=== PATIENT | female | born 1940 | race Two or more races ===

== ENCOUNTER 2024-10-31 15:26 | Emergency (ER) | payer OTHER ==
[~2024-10-31] VITALS: Ht 152.4 cm; Wt 76.2 kg
--- NOTE | 2024-10-31 16:30 | ED.PDOC ---
Rip. trauma (HPI) HPI Comments 83 year old female accompanied by daughter presents to the ED with chief complaint of headache s/p fall. Patient's daughter reports that she had went to the garage to open the door when she accidentally lost her footing and fell backwards. Patient relays that she hit the back of her head along with injuring her right hand, right ankle, and lower back. During triage, patient's BP was noted to be 208/85, despite patient taking her blood pressure medication daily. Patient denies any LOC, dizziness, numbness, dizziness, chest pain, neck pain, or weakness. Chief Complaint: Fall Injury Time Seen by MD: 16:24 Reviewed notes: Nurses Notes, Medications, Allergies Allergies: Coded Allergies: Acetaminophen (Verified Allergy, Unknown, 10/31/24) Hydrocodone (Verified Allergy, Unknown, 10/31/24) Information Source: Patient, Relative (Daughter) Mode of Arrival: Ambulatory Severity: Moderate Timing: Hours Duration: Since onset Prehospital treatment: None Location: Back, (R) Hand, Head Location of laceration: None Mechanism: Fall Past Medical History PAST MEDICAL HISTORY: High Lipids, HTN Surgical History (Other): Rt hip surgery, Rt Shoulder Surgery CROTCH BREAKER History: Denies all CROTCH BREAKER Hx Family History Family History: Reviewed,noncontributory to illness Social History Smoker: Non-Smoker Alcohol: Denies ETOH Use Drugs: Denies Drug Use Lives In: Home Constitutional: denies: chills, diaphoresis, fatigue, fever, malaise, sweats, weakness, others EENTM: denies: blurred vision, double vision, ear bleeding, ear discharge, ear drainage, ear pain, ear ringing, eye pain, eye redness, hearing loss, mouth pain, mouth swelling, nasal discharge, nose bleeding, nose congestion, nose pain, photophobia, tearing, throat pain, throat swelling, voice changes, others Respiratory: denies: cough, hemoptysis, orthopnea, SOB at rest, shortness of breath, SOB with excertion, stridor, wheezing, others Cardiovascular: denies: chest pain, dizzy spells, diaphoresis, Dyspnea on exertion, edema, irregular heart beat, left arm pain, lightheadedness, palpitations, PND, syncope, others Gastrointestinal: denies: abdomen distended, abdominal pain, blood streaked bowels, constipated, diarrhea, dysphagia, difficulty swallowing, hematemesis, melena, nausea, poor appetite, poor fluid intake, rectal bleeding, rectal pain, vomiting, others Genitourinary: denies: abnormal vagina bleeding, burning, dyspareunia, dysuria, flank pain, frequency, hematuria, incontinence, pain, , vagina discharge, urgency, others Neurological: reports: headache; denies: dizziness, fainting, left sided numbness, left sided weakness, numbness, paresthesia, pre-existing deficit, right sided numbness, right sided weakness, seizure, speech problems, tingling, tremors, weakness, others Musculoskeletal: reports: back pain, others (Rt hand pain, Rt head pain); denies: gout, joint pain, joint swelling, muscle pain, muscle stiffness, neck pain Integumetry: denies: bruises, change in color, change in hair/nails, dryness, laceration, lesions, lumps, rash, wounds, others Allergic/Immunocompromised: denies: Difficulty Healing, Frequent Infections, Hives, Itching, others Hematologic/Lymphatic: denies: anemia, blood clots, easy bleeding, easy bruising, swollen glands, others Endocrine: denies: excessive hunger, excessive sweating, excessive thirst, excessive urination, flushing, intolerance to cold, intolerance to heat, unexplained weight gain, unexplained weight loss, others Psychiatric: denies: anxiety, bipolar disorder, depression, hopeless, panic disorder, schizophrenia, sleepless, suicidal, others All Other Systems: Reviewed and Negative Physical Exam General Appearance: No Apparent Distress, Normal HEENT: Normal ENT Inspection, PERRL/EOMI Neck: Full Range of Motion, Non-Tender, Normal, Normal Inspection Respiratory: Chest Non-Tender, Lungs Clear, No Accessory Muscle Use, No Respiratory Distress, Normal Breath Sounds Cardiovascular: No Edema, No JVD, No Murmur, No Gallop, Normal Peripheral Pulses, Regular Rate/Rhythm Breast Exam: Deferred Gastrointestinal: No Organomegaly, Non Tender, No Pulsatile Mass, Normal Bowel Sounds, Soft Genitalia: Deferred Pelvic: Deferred Rectal: Deferred Extremities: No calf tenderness, Normal capillary refill, Normal inspection, Normal range of motion, Non-tender, No pedal edema Musculoskeletal : Apperance: Normal Neurologic: Alert, heading repairer II-XII nml as Tested, No Motor Deficits, Normal Affect, Normal Mood, No Sensory Deficits Cerebellar Function: Normal Reflexes: Normal Skin: Dry, Normal Color, Warm Lymphatic: No Adenopathy Was a procedure done? Was a procedure done?: No X-Ray, Labs, Meds, VS Vital Signs Date Time Temp Pulse Resp B/P (MAP) Pulse Ox O2 Delivery O2 Flow Rate FiO2 10/31/24 17:04 82 17 99 Room Air 10/31/24 17:04 98.2 82 17 164/94 (117) 99 98.2 10/31/24 15:45 97.4 78 18 211/78 (122) 96 208/85 (126) X-Ray, Labs, Meds, VS Comment This 83-year-old female presents secondary to mechanical fall. The patient was complaining of coccygeal pain, headache,, right ankle pain and wrist pain. The patient was full range of motion to all the extremities and is able to ambulate at her baseline with a cane. As the images were all negative, discharge the patient home. She was asked to take, as needed for aches and pains. Time of 1ST Reevaluation: 17:24 Reevaluation 1ST: Unchanged Patient Education/Counseling: Diagnosis, Treatment Family Education/Counseling: Diagnosis, Treatment Departure 1 Departure Time of Disposition: 17:54 Impression: Primary Impression: Headache Additional Impressions: Scalp contusion Wrist pain Ankle sprain Disposition: 01 HOME / SELF CARE / HOMELESS Condition: Good Discharged With: Self, Relative Critical Care Note Critical Care Time?: No Stability Stability form required: No Heart Score Heart Score: Heart Score Response (Comments) Value History N/A 0 EKG N/A 0 Age N/A 0 Risk Factors N/A 0 Troponin N/A 0 Total 0 I personally scribed for FLAVIO PYLE MD ([email or web address]) on 10/31/24 at 16:30. Electronically submitted by Vipin Orantes ([email or web address]). FLAVIO PYLE MD Oct 31, 2024 16:30
--- NOTE | 2024-10-31 16:45 | DVH ---
EXAM: CT HEAD WITHOUT CONTRAST HISTORY: headache after fall COMPARISON: None TECHNIQUE: Axial images of the head were obtained and reformatted in coronal and sagittal planes. All CT scans at this medical facility are performed using dose modulation techniques as appropriate t o a performed exam including the following: Automated exposure control was utilized; adjustment of th e MA and/or KV according to patient size; and use of iterative reconstruction technique. CT Dose: CTDI volume is 53 mGy. Dose-length product is 952 mGy*cm FINDINGS: There is no evidence of acute intracranial hemorrhage, mass, mass effect midline shift. There is no h ydrocephalus or extra-axial fluid collection. Mclean-white matter differentiation is maintained. The visualized paranasal sinuses and mastoid air cells are clear. The calvarium is intact. IMPRESSION: 1. No acute intracranial process. HS:Y
--- NOTE | 2024-10-31 16:52 | DVH ---
CLINICAL INDICATION: pain TECHNIQUE: 3 views of the right wrist were performed. XY R WRIST 3+ VIEW XRAY Comparison: None FINDINGS/IMPRESSION: : 1. No acute fracture or dislocation of the right wrist. 2. 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
--- NOTE | 2024-10-31 18:48 | DVH ---
EXAM: CT LUMBAR SPINE WO W INDICATION: back pain in elderly EXAM DATE: 10/31/2024 06:11 PM COMPARISON: None TECHNIQUE: Multiple axial CT images of the lumbar spine were obtained using bone algorithm. Axial and coronal reformatting was done. Bone and soft tissue windows were reviewed. Radiation Dose Information: CT Dose: CTDI volume is 32.64 mGy. Dose-length product is 995.93 mGy*cm Findings: There are 5 nonrib-bearing lumbar vertebrae. There is no evidence of an acute fracture or spondylolisthesis. The vertebral body heights are well-m aintained. Mild spondylosis. Severe degenerative disc disease at L4/L5 and L5/S1. No spinal canal stenosis. The alignment is within normal limits. The paraspinal soft tissues appear within normal limits. Lu cystectomy. Myomatous uterus. Diverticulosis. Impression: 1. No evidence of an acute fracture. 2. Mild degenerative changes of the lumbar spine with severe degenerative disc disease at L4/L5 and L 5/S1.
[2024-10-31 20:02] VITALS: TEMP 98
--- NOTE | 2024-10-31 20:59 | DVH ---
EXAM: XY R ANKLE 3 VIEW CLINICAL HISTORY: ankle pain COMPARISON: None TECHNIQUE: XY R ANKLE 3 VIEW Findings/Impression: 3 views of the right ankle. There is no evidence of an acute fracture, dislocation, blastic, or lytic lesions. No radiopaque foreign bodies. Small joint effusion with moderate to marked soft tissue edema.
[2024-10-31 21:30] VITALS: BP 178/86
[2024-10-31 21:32] VITALS: PULSE 82; RESP 18; O2SAT 98
== END 2024-10-31 21:38 | disposition home or self-care (01) ==
LOC: ER 15:26
DX: S93.401A Sprain of unspecified ligament of right ankle, initial encounter (principal); S00.03XA Contusion of scalp, initial encounter; R51.9 Headache, unspecified; M25.531 Pain in right wrist; I10 Essential (primary) hypertension; E78.5 Hyperlipidemia, unspecified; Z98.890 Other specified postprocedural states; Z79.1 Long term (current) use of non-steroidal anti-inflammatories (NSAID); Z79.891 Long term (current) use of opiate analgesic; W19.XXXA Unspecified fall, initial encounter; Y93.89 Activity, other specified; Y92.59 Other trade areas as the place of occurrence of the external cause; Y99.8 Other external cause status
CPT/HCPCS: 70450; 72133; 73110; 73610

== ENCOUNTER → 2024-12-26 | Outpatient (CLI) | payer MEDICAID ==
[2024-12-26 08:41] LABS: Alanine Aminotransferase 18 U/L (7-40); Albumin 4.2 g/dL (3.2-4.8); Alkaline Phosphatase 81 U/L (46-116); Anion Gap 7 (5-15); Aspartate Aminotransferase 26 U/L (13-40); BUN/Creatinine Ratio 20.3 (10.0-20.0); Bilirubin, Total 0.5 mg/dL (0.2-1.0); Blood Urea Nitrogen 14 mg/dL (9-23); Calcium 9.4 mg/dL (8.7-10.4); Carbon Dioxide 29 mmol/L (20-31); Chloride 100 mmol/L (98-107); Potassium 4.9 mmol/L (3.5-5.1); Total Protein 7.3 g/dL (5.7-8.2)
[2024-12-26 08:51] LABS: Glucose 108 mg/dL (74-106); Sodium 136 mmol/L (136-145)
[2024-12-26 09:04] LABS: Creatinine, Urine 44.2 mg/dL (30.0-125.0)
== END | disposition home or self-care (01) ==
LOC: LAB 07:43
PROVIDERS: ATTEND Internal Medicine
DX: E11.9 Type 2 diabetes mellitus without complications (principal); E78.5 Hyperlipidemia, unspecified
CPT/HCPCS: 36415; 80053; 82043; 82570; 83036